=== PATIENT | male | born 1975 | race Caucasian/White ===

== ENCOUNTER → 2023-10-27 15:13 | Outpatient (REF) | payer BC, SELFPAY | LOC: RAD 15:13 | PROVIDERS: ATTENDING PHYSICIAN Orthopaedic Surgery; FAMILY PHYSICIAN Nurse Practitioner Family | DX: S05.50XA Penetrating wound with foreign body of unspecified eyeball, initial encounter (principal) | CPT/HCPCS: 70030 ==

== ENCOUNTER → 2023-11-16 06:31 | Day surgery (SDC) | payer BC, SELFPAY ==
[2023-11-16 07:17] LABS: Glucose - Point of Care 141 mg/dl (70-99)
== END ==
LOC: GI 06:31
PROVIDERS: ATTENDING PHYSICIAN Internal Medicine Gastroenterology
DX: Z12.11 Encounter for screening for malignant neoplasm of colon (principal); R19.5 Other fecal abnormalities; K64.8 Other hemorrhoids; K57.30 Diverticulosis of large intestine without perforation or abscess without bleeding; K63.3 Ulcer of intestine; D12.8 Benign neoplasm of rectum; D12.5 Benign neoplasm of sigmoid colon
CPT/HCPCS: 45385; 45380; 45381; 88305; 82962

== ENCOUNTER 2024-06-09 09:29 | Day surgery (SDC) | payer BC, SELFPAY ==
[2024-06-09] VITALS (18 sets, daily range): BP systolic 104–141; BP diastolic 64–91; BMI 38.4; BMI 38.9
--- NOTE | 2024-06-09 04:01 | ED.GENMED ---
History of Present Illness
<JOSE EDUARDO Valenzuela - Last Filed: 06/09/24 22:03>
General
Chief Complaint: Abdominal Pain
Source: patient
Time Seen by Provider: 06/09/24 04:01
Nursing documentation reviewed up to this point in time: agreed with
History of Present Illness
History of Present Illness:
A pleasant 49-year-old male with a past medical history of hypertension, type 2 diabetes, presents to the emergency department for epigastric abdominal pain x 16 hours. He states that the abdominal pain suddenly started after eating 2 slices of
leftover pizza at noon yesterday. He states that it radiates to the right upper quadrant. It is associated with abdominal bloating, nausea, 3 episodes of nonbloody nonbilious vomiting. He admits to taking Ozempic which was recently increased a
month ago to 2 mg. Patient states he believes he is tolerating the increase in medication well. He has taken Tums, Gas-X, Metamucil without relief.
He does admit to a past history of GERD which resolved with Prilosec trial. He also admits to past history of biliary colic 10+ years ago, and denies any recent episodes of such colic.
Past History
<JOSE EDUARDO Valenzuela - Last Filed: 06/09/24 22:03>
Past History
ED Past Medical History: GERD, HTN and Other (Type 2 diabetes)
Social History
Alcohol: Former
Drug: None
Review of Systems
<JOSE EDUARDO Valenzuela - Last Filed: 06/09/24 22:03>
Review of Systems
Allergies reviewed?: Yes
All Other Systems: ROS reviewed and negative except as documented in HPI and ROS
Phy Exam
<JOSE EDUARDO Valenzuela - Last Filed: 06/09/24 22:03>
General Physical Exam
General Presentation: well appearing and no apparent distress
General age: appears stated age
General Skin: warm
General Habitus: obese
General Mental: alert
General Hydration: appears well hydrated
ENT Exam
ENT Exam: neck supple
Eye Exam
Eye Exam: conjunctiva normal
Cardiovascular Exam
Cardiovascular Exam: regular rate/rhythm, no edema, no gallop, no murmur and normal peripheral pulses
Pulmonary Exam
Pulmonary Exam: lungs clear, no respiratory distress and no rales
Gastrointestinal Exam
Gastrointestinal Exam: normal bowel sounds, soft, distended and tender
Palpation: left upper quadrant: No tenderness, left lower quadrant: No tenderness, right upper quadrant: Moderate tenderness, right lower quadrant: No tenderness and generalized: No tenderness
Neurological Exam
Neurological Exam: alert and oriented x3
Musculoskeletal Exam
Musculoskeletal Exam: full ROM
Skin Exam
Skin Exam: normal color, warm/dry and no rash
Course
<JOSE EDUARDO Valenzuela - Last Filed: 06/09/24 22:03>
Orders/Labs/Results
Orders:
Orders
06/09/24 03:58
Electrocardiogram (*1) Urgent
Reason for Study: Abdominal Pain
EKG- Treatment ONCE
06/09/24 04:28
Complete Blood Count/With Diff Urgent
Comprehensive Metabolic Panel Urgent
Lipase Urgent
Troponin I Urgent
06/09/24 04:37
US Abdomen Complete/Upper Urgent
Comment:
Reason For Exam: pain
06/09/24 04:43
HYDROmorphone [Dilaudid] 0.5 mg IV NOW STA
Ondansetron Injectable [Zofran] 4 mg IV NOW STA
Pantoprazole [Protonix IV] 40 mg IV NOW STA
06/09/24 06:05
Consult Surgery [SURGICAL CONSULT] Routine
Consulting Provider: Jamie Oviedo
Was physician already notified: Yes
06/09/24 06:08
0.9% Sodium Chloride 1000 ml [Nss] 1,000 ml IV BOLUS
06/09/24 06:[address] Non Medication Order As Directed
Physician Order: NPO
Above order entered?: Yes
06/09/24 06:17
Piperacillin/Tazo 3.375 Gram [Zosyn] 3.375 gram in 50 ml IV NOW
06/09/24 06:46
HYDROmorphone [Dilaudid] 0.5 mg .ROUTE .STK-MED ONE
HYDROmorphone [Dilaudid] 0.5 mg IV NOW STA
06/09/24 08:52
HYDROmorphone [Dilaudid] 0.25 mg IV PACU-Q5MPRN PRN
HYDROmorphone [Dilaudid] 0.5 mg IV PACU-Q5MPRN PRN
Meperidine [Demerol] 12.5 mg IV PACU-Q5MPRN PRN
Ondansetron Injectable [Zofran] 4 mg IV PACU-ONCEPRN PRN
Prochlorperazine [Compazine] 5 mg IV PACU-ONCEPRN PRN
Notify MD As Directed
Notify physician if: for SDS patients with known or suspected sleep obstructive sleep apnea, monitor in the
PACU.
Notify MD for any apneic/desaturation episodes
O2 Therapy [RESP] Urgent
Titrate/Wean O2 to maintain O2 sat greater than (%): 92
Special Instructions: -Provide supplemental oxygen to achieve O2 sat of 92% or greater.
-After 15 min, may wean O2 and discontinue if patient is able to maintain O2 sat of 92%
or greater during recovery period.
If patient is a discharge home, without oxygen therapy, notify anestheiologist if
unable to maintain O2 SAT of 92% or greater on room air for MD clearance.
06/09/24 08:53
Bupivacaine 0.5%Pf/Epinephrin [Sensorcain-Mpf Epi 0.5%-0.0005] 30 ml .ROUTE .STK-MED ONE
Iohexol [Omnipaque] 50 ml .ROUTE .STK-MED ONE
06/09/24 09:08
Dexamethasone Sod Phosphate [Decadron] 20 mg .ROUTE .STK-MED ONE
Fentanyl Citrate/Pf [Sublimaze] 100 mcg .ROUTE .STK-MED ONE
Lidocaine HCl/Pf [Xylocaine-Mpf 1% Vial] 50 mg .ROUTE .STK-MED ONE
Midazolam HCl [Versed] 2 mg .ROUTE .STK-MED ONE
Propofol [Diprivan] 20 ml .ROUTE .STK-MED
Rocuronium Davis [Rocuronium] 50 mg .ROUTE .STK-MED ONE
06/09/24 09:33
HYDROmorphone [Dilaudid] 1 mg .ROUTE .STK-MED ONE
06/09/24 09:34
Ketamine 5 ml .ROUTE .STK-MED
06/09/24 09:44
Sugammadex Sodium [Bridion] 200 mg .ROUTE .STK-MED ONE
06/09/24 09:52
Rocuronium Davis [Rocuronium] 50 mg .ROUTE .STK-MED ONE
06/09/24 Lunch
2000 calorie (17 carb) Diabetic
At Your Request: Full Participation
Does patient need a safe tray?: No
06/09/24 10:08
OR Pathology Routine
Pre-Operative Diagnosis: acute cholecystitis
Post-Operative Diagnosis: acute cholecystitis
Operative Procedure: laparascopic cholecystectomy
Surgeon: Jamie Oviedo
Circulating Nurse: Estrella Andrade
Specimen Type: Gallbladder
06/09/24 10:12
Tranexamic Acid 1000 mg/100 ml [Tranexamic Acid] 1,000 mg in 100 ml .ROUTE .STK-MED
06/09/24 10:23
Acetaminophen 1000MG/100Ml [Ofirmev] 1,000 mg in 100 ml .ROUTE .STK-MED
06/09/24 10:58
Admit Patient As Directed
Co-Sign Provider:
Level of Care: Post Proc/Surg Recovery
Assign to:: Medical/Surgical
Physician / Group: Preet/general surgery
Diagnosis: Acute cholecystitis
Reason for Overnight Stay: Standard of Care
Code Status As Directed
Resuscitation Status: Full Code
Acetaminophen [Tylenol] 650 mg PO Q4HPRN PRN
HYDROmorphone [Dilaudid] 1 mg IV Q4HPRN PRN
Ondansetron Injectable [Zofran] 4 mg IV Q6HPRN PRN
Oxycodone [Roxicodone] 5 mg PO Q4HPRN PRN
Activity As Directed
Activity Level: Out of Bed-Early Mobility
Anti-embolism (EVA) Hose As Directed
Type: Thigh high
Intake/ Output As Directed
Frequency: Per unit guidelines
Vital Signs As Directed
Frequency: Per unit guidelines
06/09/24 10:59
Pneumatic Compression Sleeves As Directed
Type: Knee high
PRN Pain Medication Management As Directed
May give lesser potent ordered pain med per pt: Yes
preference::
Protocol:: Medication orders for pain may be administered in a
manner that supports deferring to patient preference
when the pt is:
- Requesting an ordered lesser potent pain medication.
Least to most potent pain medications are defined
as: acetaminophen < NSAID < tramadol < opioids
(morphine, oxycodone, hydromorphone).
- Requesting a lesser dose of the same medication IF
ORDERED.
- Requesting a less intrusive route of administration
if both routes are prescribed by the provider (PO <
IV).
Rx Incentive Spirometry [RESP] Routine
Frequency: q1h while awake
# of times per hour: 10
DX Deep Vein Thrombosis Video Routine
06/09/24 11:26
Dextrose 50%-Water [Dextrose 50% Syringe] 12.5 grams IV PROCEDURE-PRN PRN
Insulin Aspart [NOVOLOG vial] See Protocol SC PROCEDURE- Q2H PRN PRN
Bedside Glucose Monitoring As Directed
Frequency: Q2H
Additional Instructions:: UNTIL PATIENT LEAVES PROCEDURE AREA
06/09/24 11:36
Dextrose 50%-Water [Dextrose 50% Syringe] 12.5 grams IV [id number] PRN
Glucagon [GlucaGen] 1 mg IM PRN PRN
Bedside Glucose Monitoring As Directed
Frequency: AC&HS
Additional Instructions:: Change to q6h if pt on TPN, tube feeding or not eating
06/09/24 16:00
Piperacillin/Tazo 3.375 Gram [Zosyn] 3.375 gram in 50 ml IV Q6
06/09/24 16:30
Insulin Aspart Corrective Low [Novolog Flexpen-Low Resistance] See Protocol SC AC
06/10/24 06:00
Complete Blood Count/No Diff IN AM
Comprehensive Metabolic Panel IN AM
Abnormal Lab Results
06/09/24 06/09/24 06/09/24
04:28 11:25 16:48
WBC 15.7 H 10^3/uL
(4.8-10.8)
Abs Immat Gran (auto) 0.1 H 10^3/uL
(0-0.05)
Absolute Neuts (auto) 13.2 H 10^3/uL
(1.4-6.5)
Absolute Monos (auto) 0.9 H 10^3/uL
(0.1-0.6)
Neutrophils % 83.7 H %
(42.2-75.2)
Lymphocytes % 9.3 L %
(20.5-51.1)
BUN 29 H mg/dl
(9-20)
Glucose 169 H mg/dl
(70-99)
POC Glucose 176 H mg/dl 170 H mg/dl
(70-99) (70-99)
06/09/24
21:39
WBC
Abs Immat Gran (auto)
Absolute Neuts (auto)
Absolute Monos (auto)
Neutrophils %
Lymphocytes %
BUN
Glucose
POC Glucose 170 H mg/dl
(70-99)
06/09/24 04:28
06/09/24 04:28
Vital Signs
Initial and Last Documented VS:
Initial Vital Signs
BP
133/80
06/09/24 04:04
Last Documented Vital Signs
Temp Pulse Resp BP Pulse Ox
98.3 F 101 22 104/66 94
06/09/24 19:51 06/09/24 19:51 06/09/24 19:51 06/09/24 19:51 06/09/24 19:51
<Nomi Carrillo, DO - Last Filed: 06/09/24 04:44>
Orders/Labs/Results
Orders:
Orders
06/09/24 03:58
Electrocardiogram (*1) Urgent
Reason for Study: Abdominal Pain
EKG- Treatment ONCE
06/09/24 04:28
Complete Blood Count/With Diff Urgent
Comprehensive Metabolic Panel Urgent
Lipase Urgent
Troponin I Urgent
06/09/24 04:37
US Abdomen Complete/Upper Urgent
Comment:
Reason For Exam: pain
06/09/24 04:43
HYDROmorphone [Dilaudid] 0.5 mg IV NOW STA
Ondansetron Injectable [Zofran] 4 mg IV NOW STA
Pantoprazole [Protonix IV] 40 mg IV NOW STA
06/09/24 06:05
Consult Surgery [SURGICAL CONSULT] Routine
Consulting Provider: Jamie Oviedo
Was physician already notified: Yes
06/09/24 06:08
0.9% Sodium Chloride 1000 ml [Nss] 1,000 ml IV BOLUS
06/09/24 06:[address] Non Medication Order As Directed
Physician Order: NPO
Above order entered?: Yes
06/09/24 06:17
Piperacillin/Tazo 3.375 Gram [Zosyn] 3.375 gram in 50 ml IV NOW
06/09/24 06:46
HYDROmorphone [Dilaudid] 0.5 mg .ROUTE .STK-MED ONE
HYDROmorphone [Dilaudid] 0.5 mg IV NOW STA
06/09/24 08:52
HYDROmorphone [Dilaudid] 0.25 mg IV PACU-Q5MPRN PRN
HYDROmorphone [Dilaudid] 0.5 mg IV PACU-Q5MPRN PRN
Meperidine [Demerol] 12.5 mg IV PACU-Q5MPRN PRN
Ondansetron Injectable [Zofran] 4 mg IV PACU-ONCEPRN PRN
Prochlorperazine [Compazine] 5 mg IV PACU-ONCEPRN PRN
Notify MD As Directed
Notify physician if: for SDS patients with known or suspected sleep obstructive sleep apnea, monitor in the
PACU.
Notify MD for any apneic/desaturation episodes
O2 Therapy [RESP] Urgent
Titrate/Wean O2 to maintain O2 sat greater than (%): 92
Special Instructions: -Provide supplemental oxygen to achieve O2 sat of 92% or greater.
-After 15 min, may wean O2 and discontinue if patient is able to maintain O2 sat of 92%
or greater during recovery period.
If patient is a discharge home, without oxygen therapy, notify anestheiologist if
unable to maintain O2 SAT of 92% or greater on room air for MD clearance.
06/09/24 08:53
Bupivacaine 0.5%Pf/Epinephrin [Sensorcain-Mpf Epi 0.5%-0.0005] 30 ml .ROUTE .STK-MED ONE
Iohexol [Omnipaque] 50 ml .ROUTE .STK-MED ONE
06/09/24 09:08
Dexamethasone Sod Phosphate [Decadron] 20 mg .ROUTE .STK-MED ONE
Fentanyl Citrate/Pf [Sublimaze] 100 mcg .ROUTE .STK-MED ONE
Lidocaine HCl/Pf [Xylocaine-Mpf 1% Vial] 50 mg .ROUTE .STK-MED ONE
Midazolam HCl [Versed] 2 mg .ROUTE .STK-MED ONE
Propofol [Diprivan] 20 ml .ROUTE .STK-MED
Rocuronium Davis [Rocuronium] 50 mg .ROUTE .STK-MED ONE
06/09/24 09:33
HYDROmorphone [Dilaudid] 1 mg .ROUTE .STK-MED ONE
06/09/24 09:34
Ketamine 5 ml .ROUTE .STK-MED
06/09/24 09:44
Sugammadex Sodium [Bridion] 200 mg .ROUTE .STK-MED ONE
06/09/24 09:52
Rocuronium Davis [Rocuronium] 50 mg .ROUTE .STK-MED ONE
06/09/24 Lunch
2000 calorie (17 carb) Diabetic
At Your Request: Full Participation
Does patient need a safe tray?: No
06/09/24 10:08
OR Pathology Routine
Pre-Operative Diagnosis: acute cholecystitis
Post-Operative Diagnosis: acute cholecystitis
Operative Procedure: laparascopic cholecystectomy
Surgeon: Jamie Oviedo
Circulating Nurse: Estrella Andrade
Specimen Type: Gallbladder
06/09/24 10:12
Tranexamic Acid 1000 mg/100 ml [Tranexamic Acid] 1,000 mg in 100 ml .ROUTE .STK-MED
06/09/24 10:23
Acetaminophen 1000MG/100Ml [Ofirmev] 1,000 mg in 100 ml .ROUTE .STK-MED
06/09/24 10:58
Admit Patient As Directed
Co-Sign Provider:
Level of Care: Post Proc/Surg Recovery
Assign to:: Medical/Surgical
Physician / Group: Preet/general surgery
Diagnosis: Acute cholecystitis
Reason for Overnight Stay: Standard of Care
Code Status As Directed
Resuscitation Status: Full Code
Acetaminophen [Tylenol] 650 mg PO Q4HPRN PRN
HYDROmorphone [Dilaudid] 1 mg IV Q4HPRN PRN
Ondansetron Injectable [Zofran] 4 mg IV Q6HPRN PRN
Oxycodone [Roxicodone] 5 mg PO Q4HPRN PRN
Activity As Directed
Activity Level: Out of Bed-Early Mobility
Anti-embolism (EVA) Hose As Directed
Type: Thigh high
Intake/ Output As Directed
Frequency: Per unit guidelines
Vital Signs As Directed
Frequency: Per unit guidelines
06/09/24 10:59
Pneumatic Compression Sleeves As Directed
Type: Knee high
PRN Pain Medication Management As Directed
May give lesser potent ordered pain med per pt: Yes
preference::
Protocol:: Medication orders for pain may be administered in a
manner that supports deferring to patient preference
when the pt is:
- Requesting an ordered lesser potent pain medication.
Least to most potent pain medications are defined
as: acetaminophen < NSAID < tramadol < opioids
(morphine, oxycodone, hydromorphone).
- Requesting a lesser dose of the same medication IF
ORDERED.
- Requesting a less intrusive route of administration
if both routes are prescribed by the provider (PO <
IV).
Rx Incentive Spirometry [RESP] Routine
Frequency: q1h while awake
# of times per hour: 10
DX Deep Vein Thrombosis Video Routine
06/09/24 11:26
Dextrose 50%-Water [Dextrose 50% Syringe] 12.5 grams IV PROCEDURE-PRN PRN
Insulin Aspart [NOVOLOG vial] See Protocol SC PROCEDURE- Q2H PRN PRN
Bedside Glucose Monitoring As Directed
Frequency: Q2H
Additional Instructions:: UNTIL PATIENT LEAVES PROCEDURE AREA
06/09/24 11:36
Dextrose 50%-Water [Dextrose 50% Syringe] 12.5 grams IV [id number] PRN
Glucagon [GlucaGen] 1 mg IM PRN PRN
Bedside Glucose Monitoring As Directed
Frequency: AC&HS
Additional Instructions:: Change to q6h if pt on TPN, tube feeding or not eating
06/09/24 16:00
Piperacillin/Tazo 3.375 Gram [Zosyn] 3.375 gram in 50 ml IV Q6
06/09/24 16:30
Insulin Aspart Corrective Low [Novolog Flexpen-Low Resistance] See Protocol SC AC
06/10/24 06:00
Complete Blood Count/No Diff IN AM
Comprehensive Metabolic Panel IN AM
Abnormal Lab Results
06/09/24 06/09/24 06/09/24
04:28 11:25 16:48
WBC 15.7 H 10^3/uL
(4.8-10.8)
Abs Immat Gran (auto) 0.1 H 10^3/uL
(0-0.05)
Absolute Neuts (auto) 13.2 H 10^3/uL
(1.4-6.5)
Absolute Monos (auto) 0.9 H 10^3/uL
(0.1-0.6)
Neutrophils % 83.7 H %
(42.2-75.2)
Lymphocytes % 9.3 L %
(20.5-51.1)
BUN 29 H mg/dl
(04-19)
Glucose 169 H mg/dl
()
POC Glucose 176 H mg/dl 170 H mg/dl
() (99)
06/09/24
21:39
WBC
Abs Immat Gran (auto)
Absolute Neuts (auto)
Absolute Monos (auto)
Neutrophils %
Lymphocytes %
BUN
Glucose
POC Glucose 170 H mg/dl
()
06/09/24 04:28
06/09/24 04:28
Vital Signs
Initial and Last Documented VS:
Initial Vital Signs
BP
133/80
06/09/24 04:04
Last Documented Vital Signs
Temp Pulse Resp BP Pulse Ox
98.3 F 101 22 104/66 94
06/09/24 19:51 06/09/24 19:51 06/09/24 19:51 06/09/24 19:51 06/09/24 19:51
<Sy Patel MD - Last Filed: 06/09/24 08:52>
Orders/Labs/Results
Orders:
Orders
06/09/24 03:58
Electrocardiogram (*1) Urgent
Reason for Study: Abdominal Pain
EKG- Treatment ONCE
06/09/24 04:28
Complete Blood Count/With Diff Urgent
Comprehensive Metabolic Panel Urgent
Lipase Urgent
Troponin I Urgent
06/09/24 04:37
US Abdomen Complete/Upper Urgent
Comment:
Reason For Exam: pain
06/09/24 04:43
HYDROmorphone [Dilaudid] 0.5 mg IV NOW STA
Ondansetron Injectable [Zofran] 4 mg IV NOW STA
Pantoprazole [Protonix IV] 40 mg IV NOW STA
06/09/24 06:05
Consult Surgery [SURGICAL CONSULT] Routine
Consulting Provider: Jamie Oviedo
Was physician already notified: Yes
06/09/24 06:08
0.9% Sodium Chloride 1000 ml [Nss] 1,000 ml IV BOLUS
06/09/24 06:[address] Non Medication Order As Directed
Physician Order: NPO
Above order entered?: Yes
06/09/24 06:17
Piperacillin/Tazo 3.375 Gram [Zosyn] 3.375 gram in 50 ml IV NOW
06/09/24 06:46
HYDROmorphone [Dilaudid] 0.5 mg .ROUTE .STK-MED ONE
HYDROmorphone [Dilaudid] 0.5 mg IV NOW STA
06/09/24 08:52
HYDROmorphone [Dilaudid] 0.25 mg IV PACU-Q5MPRN PRN
HYDROmorphone [Dilaudid] 0.5 mg IV PACU-Q5MPRN PRN
Meperidine [Demerol] 12.5 mg IV PACU-Q5MPRN PRN
Ondansetron Injectable [Zofran] 4 mg IV PACU-ONCEPRN PRN
Prochlorperazine [Compazine] 5 mg IV PACU-ONCEPRN PRN
Notify MD As Directed
Notify physician if: for SDS patients with known or suspected sleep obstructive sleep apnea, monitor in the
PACU.
Notify MD for any apneic/desaturation episodes
O2 Therapy [RESP] Urgent
Titrate/Wean O2 to maintain O2 sat greater than (%): 92
Special Instructions: -Provide supplemental oxygen to achieve O2 sat of 92% or greater.
-After 15 min, may wean O2 and discontinue if patient is able to maintain O2 sat of 92%
or greater during recovery period.
If patient is a discharge home, without oxygen therapy, notify anestheiologist if
unable to maintain O2 SAT of 92% or greater on room air for MD clearance.
06/09/24 08:53
Bupivacaine 0.5%Pf/Epinephrin [Sensorcain-Mpf Epi 0.5%-0.0005] 30 ml .ROUTE .STK-MED ONE
Iohexol [Omnipaque] 50 ml .ROUTE .STK-MED ONE
06/09/24 09:08
Dexamethasone Sod Phosphate [Decadron] 20 mg .ROUTE .STK-MED ONE
Fentanyl Citrate/Pf [Sublimaze] 100 mcg .ROUTE .STK-MED ONE
Lidocaine HCl/Pf [Xylocaine-Mpf 1% Vial] 50 mg .ROUTE .STK-MED ONE
Midazolam HCl [Versed] 2 mg .ROUTE .STK-MED ONE
Propofol [Diprivan] 20 ml .ROUTE .STK-MED
Rocuronium Davis [Rocuronium] 50 mg .ROUTE .STK-MED ONE
06/09/24 09:33
HYDROmorphone [Dilaudid] 1 mg .ROUTE .STK-MED ONE
06/09/24 09:34
Ketamine 5 ml .ROUTE .STK-MED
06/09/24 09:44
Sugammadex Sodium [Bridion] 200 mg .ROUTE .STK-MED ONE
06/09/24 09:52
Rocuronium Davis [Rocuronium] 50 mg .ROUTE .STK-MED ONE
06/09/24 Lunch
2000 calorie (17 carb) Diabetic
At Your Request: Full Participation
Does patient need a safe tray?: No
06/09/24 10:08
OR Pathology Routine
Pre-Operative Diagnosis: acute cholecystitis
Post-Operative Diagnosis: acute cholecystitis
Operative Procedure: laparascopic cholecystectomy
Surgeon: Jamie Oviedo
Circulating Nurse: Estrella Andrade
Specimen Type: Gallbladder
06/09/24 10:12
Tranexamic Acid 1000 mg/100 ml [Tranexamic Acid] 1,000 mg in 100 ml .ROUTE .STK-MED
06/09/24 10:23
Acetaminophen 1000MG/100Ml [Ofirmev] 1,000 mg in 100 ml .ROUTE .STK-MED
06/09/24 10:58
Admit Patient As Directed
Co-Sign Provider:
Level of Care: Post Proc/Surg Recovery
Assign to:: Medical/Surgical
Physician / Group: Preet/general surgery
Diagnosis: Acute cholecystitis
Reason for Overnight Stay: Standard of Care
Code Status As Directed
Resuscitation Status: Full Code
Acetaminophen [Tylenol] 650 mg PO Q4HPRN PRN
HYDROmorphone [Dilaudid] 1 mg IV Q4HPRN PRN
Ondansetron Injectable [Zofran] 4 mg IV Q6HPRN PRN
Oxycodone [Roxicodone] 5 mg PO Q4HPRN PRN
Activity As Directed
Activity Level: Out of Bed-Early Mobility
Anti-embolism (EVA) Hose As Directed
Type: Thigh high
Intake/ Output As Directed
Frequency: Per unit guidelines
Vital Signs As Directed
Frequency: Per unit guidelines
06/09/24 10:59
Pneumatic Compression Sleeves As Directed
Type: Knee high
PRN Pain Medication Management As Directed
May give lesser potent ordered pain med per pt: Yes
preference::
Protocol:: Medication orders for pain may be administered in a
manner that supports deferring to patient preference
when the pt is:
- Requesting an ordered lesser potent pain medication.
Least to most potent pain medications are defined
as: acetaminophen < NSAID < tramadol < opioids
(morphine, oxycodone, hydromorphone).
- Requesting a lesser dose of the same medication IF
ORDERED.
- Requesting a less intrusive route of administration
if both routes are prescribed by the provider (PO <
IV).
Rx Incentive Spirometry [RESP] Routine
Frequency: q1h while awake
# of times per hour: 10
DX Deep Vein Thrombosis Video Routine
06/09/24 11:26
Dextrose 50%-Water [Dextrose 50% Syringe] 12.5 grams IV PROCEDURE-PRN PRN
Insulin Aspart [NOVOLOG vial] See Protocol SC PROCEDURE- Q2H PRN PRN
Bedside Glucose Monitoring As Directed
Frequency: Q2H
Additional Instructions:: UNTIL PATIENT LEAVES PROCEDURE AREA
06/09/24 11:36
Dextrose 50%-Water [Dextrose 50% Syringe] 12.5 grams IV [id number] PRN
Glucagon [GlucaGen] 1 mg IM PRN PRN
Bedside Glucose Monitoring As Directed
Frequency: AC&HS
Additional Instructions:: Change to q6h if pt on TPN, tube feeding or not eating
06/09/24 16:00
Piperacillin/Tazo 3.375 Gram [Zosyn] 3.375 gram in 50 ml IV Q6
06/09/24 16:30
Insulin Aspart Corrective Low [Novolog Flexpen-Low Resistance] See Protocol SC AC
06/10/24 06:00
Complete Blood Count/No Diff IN AM
Comprehensive Metabolic Panel IN AM
Abnormal Lab Results
06/09/24 06/09/24 06/09/24
04:28 11:25 16:48
WBC 15.7 H 10^3/uL
(4.8-10.8)
Abs Immat Gran (auto) 0.1 H 10^3/uL
(0-0.05)
Absolute Neuts (auto) 13.2 H 10^3/uL
(1.4-6.5)
Absolute Monos (auto) 0.9 H 10^3/uL
(0.1-0.6)
Neutrophils % 83.7 H %
(42.2-75.2)
Lymphocytes % 9.3 L %
(20.5-51.1)
BUN 29 H mg/dl
(04-19)
Glucose 169 H mg/dl
(7099)
POC Glucose 176 H mg/dl 170 H mg/dl
(70-99) (70-99)
06/09/24
21:39
WBC
Abs Immat Gran (auto)
Absolute Neuts (auto)
Absolute Monos (auto)
Neutrophils %
Lymphocytes %
BUN
Glucose
POC Glucose 170 H mg/dl
(99)
06/09/24 04:28
06/09/24 04:28
Vital Signs
Initial and Last Documented VS:
Initial Vital Signs
BP
133/80
06/09/24 04:04
Last Documented Vital Signs
Temp Pulse Resp BP Pulse Ox
98.3 F 101 22 104/66 94
06/09/24 19:51 06/09/24 19:51 06/09/24 19:51 06/09/24 19:51 06/09/24 19:51
<JOSE EDUARDO Valenzuela - Last Filed: 06/09/24 22:03>
MDM/Problems Addressed
Differential Diagnosis Includes:
Cholelithiasis, cholecystitis, acute cholangitis, pancreatitis
<Sy Patel MD - Last Filed: 06/09/24 08:52>
MDM/Problems Addressed
MDM/Problems Addressed:
Pt seen in ED by (surgery) - will proceed to OR, as pt continues to remain symptomatic, requiring multiple doses of pain medication
<JOSE EDUARDO Valenzuela - Last Filed: 06/09/24 22:03>
*Critical Care Note
Total Time (30-74mins, 75-104mins- exclusive of procedures): Not Applicable
<Nomi Carrillo DO - Last Filed: 06/09/24 04:44>
Update Note
Update Note:
4:40 AM seen with student examined independently 49-year-old male diabetic on Ozempic recent increase in dose epigastric right upper quadrant pain after eating pizza similar less severe in the past as of reflux in the past no prior abdominal
surgeries no chest pain or shortness of breath,
White count is up LFTs are pending, lipase is pending EKG is noted will check ultrasound,
ED Attending Note
<JOSE EDUARDO Valenzuela - Last Filed: 06/09/24 22:03>
-
Portions of this chart may have been created with voice recognition software.� Occasional wrong word or��sound alike� substitutions may have occurred due to the inherent limitations of voice recognition software.
<Nomi Carrillo DO - Last Filed: 06/09/24 04:44>
ED Attending Note
Patient seen and examined by attending physician: Yes
I performed the substantive portion of visit, reviewed & personally made and approve the management plan that is documented in note by myself or KATIE.: Yes
ED Attending Note:
Seen with student examined independently agree with assessment plan
Discharge Plan
Departure
Patient Disposition: OR
Date of Disposition: 06/09/24
Time of Disposition: 06:18
Presentation/result/management discussed w/ accepting MD/:
Discharge Problem:
Biliary colic
Interventions
Interventions:
*Risk Screen - Suicide Last Done: 06/09/24 03:53
*General Assessment Last Done: 06/09/24 04:18
*Neglect/Abuse Screening Last Done: 06/09/24 03:53
ED- Fall Risk Assessment Last Done: 06/09/24 04:18
*ED COVID-19 Vaccine History Last Done: 06/09/24 04:18
*Nursing Disposition Last Done: 06/09/24 08:55
[facility] Assessment Last Done: 06/09/24 04:17
Discharge Date and Time
Discharge Date/Time: 06/09/24 08:55
[2024-06-09 04:34] LABS: % Basophils 0.5 % (0-2); % Eosinophils 0.4 % (0-6); % Immature Granulocytes 0.4 % (0-0.5); % Lymphocytes 9.3 % (20.5-51.1); % Monocytes 5.7 % (1.7-9.3); % Neutrophils 83.7 % (42.2-75.2); Absolute Basophils 0.1 10^3/uL (0-0.2); Absolute Eosinophils 0.1 10^3/uL (0-0.7); Absolute Immature Granulocytes 0.1 10^3/uL (0-0.05); Absolute Lymphocytes 1.5 10^3/uL (1.2-3.4); Absolute Monocytes 0.9 10^3/uL (0.1-0.6); Absolute Neutrophils 13.2 10^3/uL (1.4-6.5); Hematocrit 40.9 % (39.0-52.0); Hemoglobin 14.9 g/dL (13.0-18.0); Mean Corp Hgb Conc. 36.4 g/dL (33.0-37.0); Mean Corpuscular Hgb 30.1 pg (27.0-31.0); Mean Corpuscular Volume 82.6 fL (80.0-94.0); Mean Platelet Volume 9.1 fL (7.4-10.4); Nucleated Red Blood Cells % 0 % (-); Platelet Count 274 10^3/uL (130-400); Red Blood Cell Count 4.95 10^6/uL (4.70-6.10); White Blood Cell Count 15.7 10^3/uL (4.8-10.8)
[2024-06-09] MEDS: PROTONIX IV 40 MG IV (04:46)
[2024-06-09] MEDS: ZOFRAN 4 MG IV (04:46)
[2024-06-09] MEDS: DILAUDID 0.5 MG IV ×2 (04:46→06:47)
[2024-06-09 04:53] LABS: ALT (SGPT) 44 U/L (0-50); AST (SGOT) 23 U/L (17-59); Albumin 4.7 g/dl (3.5-5.0); Alkaline Phosphatase 91 U/L (38-126); Blood Urea Nitrogen 29 mg/dl (9-20); Calcium 10.2 mg/dl (8.4-10.2); Carbon Dioxide 27 mmol/L (22-30); Chloride 99 mmol/L (98-107); Estimated Creatinine Clearance > 125 ml/min; Glucose 169 mg/dl (70-99); Lipase 101 U/L (23-300); Potassium 3.9 mmol/L (3.5-5.1); Sodium 137 mmol/L (135-145); Total Bilirubin 0.6 mg/dl (0.2-1.3); Total Protein 7.4 g/dl (6.3-8.2); eGFR > 60.00
[2024-06-09 04:59] LABS: Troponin I < 0.012 ng/ml
[2024-06-09] MEDS: NSS 1000 IV (06:14)
[2024-06-09] MEDS: ZOSYN 50 IV ×3 (06:22→23:02)
--- NOTE | 2024-06-09 08:24 | HPS.HSE ---
Family Physician
-
Family Physician: TERA Dela Cruz
Chief Complaint
-
Right upper quadrant pain
History of Present Illness
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 He has had similar attacks in the past but this was much more prolonged which
prompted him to come into the ED. The patient denies Fever, Chest Pain, Shortness Of Breath, Nausea, Vomiting, changes in urinary and bowel habits, unintentional weight loss, jaundice, icterus, acolic stools.
His history is significant for Hypertension, diabetes which is fairly well-controlled, he is on a GLP-1 agonist.
Medical History
Past Medical History
Past Medical History: Reports HTN and NIDDM
Past Surgical History: Reports None
Social History
Unable to obtain full social history at this time due to: Dementia
Tobacco: Non-smoker
Alcohol: Former
Drug: None
Personal: Single
Living: With Family
Family History
Family History: Not pertinent
Allergies / Home Medications
Allergies reflects when Allergies were last updated in [employer].
Home Medications with original date entered in [employer]
Allergy/Medication List:
None
Review of Systems
-
A 12 point ROS was completed and negative except as noted: Yes
Physical Exam
Vital Signs
Vital Signs
Temp Pulse Resp BP Pulse Ox
97.9 F 105 16 141/91 94
06/09/24 04:24 06/09/24 06:00 06/09/24 06:00 06/09/24 06:00 06/09/24 05:15
Physical Exam
General: Well Developed and Obese
GI: Non Distended and Tender (Tender to palpation in the right upper quadrant)
Laboratory Results
-
06/09/24 04:28
06/09/24 04:28
Laboratory Results
Total Bilirubin 0.6 mg/dl (0.2-1.3) 06/09/24 04:28
AST 23 U/L (17-59) 06/09/24 04:28
ALT 44 U/L (0-50) 06/09/24 04:28
Alkaline Phosphatase 91 U/L (38-126) 06/09/24 04:28
Troponin I < 0.012 ng/ml 06/09/24 04:28
Lipase 101 U/L (23-300) 06/09/24 04:28
Data Reviewed
-
Ultrasound: Image Personally Visualized and interpreted, Report Reviewed by me, Discussed with Physician and Discussed with Patient
Lab Data: Labs Reviewed by me, Discussed with Physician and Discussed with Patient
Impression/Plan
-
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
Ozempic. Ultrasound imaging, blood work and exam all consistent with acute cholecystitis.
PLAN:
Will plan for a laparoscopic cholecystectomy with cholangiogram in the OR today.
N.p.o., IV fluids, IV antibiotics.
Risks/Benefits/Alternatives, expected postoperative course and possible complications (bleeding, infection, injury to surrounding structures, acute/chronic pain) discussed at length. Patient wishes to proceed with surgery. All questions answered.
Consent obtained.
I spent 60 minutes in total for the care of this patient today including direct patient care and counseling, reviewing labs, imaging, coordination of care, as well as documentation.
--- NOTE | 2024-06-09 08:33 | W.SUR.PREOP ---
Pre-Operative Surgical Note
-
I have examined this patient prior to the performance of the scheduled procedure.
The patient's condition is unchanged from the time of the current History and
Physical and the patient is able to undergo the scheduled procedure.
--- NOTE | 2024-06-09 10:50 | W.IMMPOSTOP ---
Surgical Immed Post Op Note
-
Primary Surgeon: Jamie Oviedo MD
Assisting Surgeon: None
Pre-op Diagnosis: Acute cholecystitis
Post-op Diagnosis: Same
Procedure Performed: Laparoscopic cholecystectomy
Anesthesia Type: General
Specimen / Cultures: Gallbladder and contents
Estimated Blood Loss: 11 cc
Complications: None
Operative Findings: Inflamed and distended gallbladder, hydrops suctioned out using an aspiration needle. A critical view of safety obtained prior to ligation of the duct with a clip followed by a 0 PDS Endoloop. True cystic artery not identified,
but a small branch of it was clipped. A small rent in the gallbladder was made with spillage of bile but no stones. A large cholesterol gallstone could be appreciated through this rent.
POST OP PLAN:
Imaging: None
Labs: Routine AM
Diet: Advance to Regular as tolerated
Analgesia: Tylenol 650mg q6 Lorena, Ciera 5mg q6 PRN, Dilaudid 0.5mg q2h PRN
Neuro/vascular checks: q4h
AC/AP: Hold Therapeutic AC, Ok for DVT PPx
Activity: Ad Rere
Wound/Incisions/Drains: Routine
Abx: Would do a 4-day course of antibiotics
Dispo: RNF, anticipate discharge home tomorrow
--- NOTE | 2024-06-09 10:52 | OR.RPT ---
Operative Report
Operative Report
Patient Name: Dean Haro
: 1975
Date of Operation: 06/09/2024
Preoperative Diagnosis: Acute cholecystitis
Postoperative Diagnosis: Same
Procedure(s):
Laparoscopic Cholecystectomy
Surgeon(s):
Dr. Oviedo
Hydrologist(s):
DANNA Lepe
Anesthesia: General
Estimated Blood Loss: 11 cc
Urine Output: None
Drains/Lines/Implants: None
Specimens:
1. Gallbladder and contents
HPI/Surgical Indications:
This is a 49-year-old male who presents with a 1 day history of right upper quadrant abdominal pain, in the setting of similar episodes over the past several months since the patient has started Ozempic. Exam, labs and imaging are consistent with
acute cholecystitis. Risks/Benefits/Alternatives were discussed at length, and the patient agreed to proceed with surgery.
Operative Findings: Inflamed and distended gallbladder, hydrops suctioned out using an aspiration needle. A critical view of safety obtained prior to ligation of the duct with a clip followed by a 0 PDS Endoloop. True cystic artery not identified,
but a small branch of it was clipped. A small rent in the gallbladder was made with spillage of bile but no stones. A large cholesterol gallstone could be appreciated through this rent.
Procedure Description:
The patient was brought to the Operating Room and placed in the supine position with one arm tucked. Following uneventful induction of general endotracheal anesthesia, an orogastric tube was placed. The abdomen was prepped and draped in the usual
sterile fashion. A timeout was performed confirming the procedure, consent, and that IV antibiotics were infused and sequential compression devices were confirmed to be on. The abdomen was entered using a left subcostal Veress technique which
required a single pass followed by a 5 mm right upper quadrant Optiview trocar. Pneumoperitoneum to 15 mmHg pressure was obtained without difficulty and we confirmed that no injury had occurred during our entry. The patient was positioned in reverse
Trendelenberg and rotated with the right side up slightly. Two 5mm trocars were then placed along the right subcostal margin, followed by a 12 mm port in the epigastrium. The gallbladder was emptied using a decompressing needle through the fundus
of the gallbladder with evacuation of hydrops before A locking grasping forceps was placed on the fundus of the gallbladder where it was then retracted cephalad and to the right. Using appropriate grasping instruments, the peritoneum overlying the
triangle of Calot was incised and extended superiorly on both the anterior and posterior gallbladder colon. The infundibulum was dissected off the cystic plate. The cystic triangle was dissected until a critical view of safety was achieved. A true
cystic artery was not identified but a small branch was clipped and ligated in the cystic triangle. The cystic duct was also clipped proximally and then cut. As the duct was exceedingly small we elected not to do a cholangiogram and the duct was
ligated distally with a clip followed by a 0 PDS Endoloop. The gallbladder was freed from the liver using electrocautery. There were a few small rents in the gallbladder with some spillage of bile, but no spillage of stones. A large cholesterol
gallstone could be appreciated through 1 of these rents. The gallbladder bed was inspected and excellent hemostasis was obtained. The gallbladder was extracted through the 12 mm trocar site using an endocatch bag. The abdomen was again irrigated
and excellent hemostasis was assured. All remaining trocars were then removed and the pneumoperitoneum was evacuated. The 12 mm trocar site which had to be enlarged to remove the specimen, was closed using 2 [id number] 0 PDS sutures. All
trocar sites were closed at the skin level using 4-0 Monocryl followed by Dermabond. Overall, the patient tolerated the procedure well and was taken to the Recovery Room postoperatively in stable condition.
I was the attending physician and performed the procedure with assistance from the . I was present for all portions of the case.
Jamie Oviedo MD
[2024-06-09 11:26] LABS: Glucose - Point of Care 176 mg/dl (70-99)
--- NOTE | 2024-06-09 16:06 | PTCARENOTE ---
pt to floor at 1200, Aox3. 4lap sites, here for Zosyn. bed low call hogan in reach
[2024-06-09] MEDS: TYLENOL 650 MG PO (16:21)
[2024-06-09 16:48] LABS: Glucose - Point of Care 170 mg/dl (70-99)
[2024-06-09] MEDS: NOVOLOG FLEXPEN-LOW RESISTANCE 1 UNITS SC (18:18)
[2024-06-09 21:41] LABS: Glucose - Point of Care 170 mg/dl (70-99)
[2024-06-09] MEDS: ROXICODONE 5 MG PO (22:38)
[2024-06-10 03:14] VITALS: BP 113/72
[2024-06-10] MEDS: ZOSYN 50 IV (05:23)
[2024-06-10 05:48] LABS: Hemoglobin 13.3 g/dL (13.0-18.0); Mean Corpuscular Hgb 30.1 pg (27.0-31.0); Mean Platelet Volume 9.5 fL (7.4-10.4); Platelet Count 270 10^3/uL (130-400); Red Blood Cell Count 4.42 10^6/uL (4.70-6.10); Red Cell Dist. Width 13.3 % (11.5-14.5); White Blood Cell Count 14.4 10^3/uL (4.8-10.8)
[2024-06-10 06:05] LABS: ALT (SGPT) 135 U/L (0-50); AST (SGOT) 71 U/L (17-59); Albumin 3.9 g/dl (3.5-5.0); Alkaline Phosphatase 88 U/L (38-126); Blood Urea Nitrogen 21 mg/dl (9-20); Calcium 8.9 mg/dl (8.4-10.2); Carbon Dioxide 26 mmol/L (22-30); Chloride 100 mmol/L (98-107); Estimated Creatinine Clearance > 125 ml/min; Glucose 123 mg/dl (70-99); Potassium 3.7 mmol/L (3.5-5.1); Sodium 139 mmol/L (135-145); Total Bilirubin 0.7 mg/dl (0.2-1.3); Total Protein 6.6 g/dl (6.3-8.2); eGFR > 60.00
[2024-06-10 07:37] LABS: Glucose - Point of Care 118 mg/dl (70-99)
[2024-06-10] MEDS: NOVOLOG FLEXPEN-LOW RESISTANCE SC (07:40)
[2024-06-10 08:00] VITALS: BP 115/72
--- NOTE | 2024-06-10 09:08 | W.PN.GS2 ---
Today's Communication / Plan
-
Will DC home today
Assessment / Plan
-
This is a 49-year-old male postoperative day 1 from a laparoscopic cholecystectomy for acute cholecystitis.
Time Spent
Total Time Spent with Patient (in minutes): 20
Subjective Data
-
Date of Service: June 10, 2024
Interval Events:
No acute events overnight. Slept well. Pain Controlled. Denies Nausea/Vomiting, -bowel function. Tolerating diet.
Objective Data
-
Intake and Output
06/09/24 06/10/24 06/11/24
06:59 06:59 06:59
Intake Total 1230 / 1230
Balance 1230 / 1230
Intake:
Oral fluids 980 / 980
IV fluids (Total) 100 / 100
norm 100 / 100
IV piggybacks 150 / 150
Other:
Number of approximated MODERATE 3
amounts of urine
Vital Signs
Temp Pulse Resp BP Pulse Ox
97.9 F 86 19 115/72 95
06/10/24 08:00 06/10/24 08:00 06/10/24 08:00 06/10/24 08:00 06/10/24 08:00
Lab Results
06/10/24 04:34
06/10/24 04:34
Calcium 8.9 mg/dl (8.4-10.2) 06/10/24 04:34
Total Bilirubin 0.7 mg/dl (0.2-1.3) 06/10/24 04:34
AST 71 U/L (17-59) H 06/10/24 04:34
ALT 135 U/L (0-50) H 06/10/24 04:34
Alkaline Phosphatase 88 U/L (38-126) 06/10/24 04:34
Total Protein 6.6 g/dl (6.3-8.2) 06/10/24 04:34
Albumin 3.9 g/dl (3.5-5.0) 06/10/24 04:34
Physical Exam
-
GENERAL/NEURO: Awake, Alert, no distress
CHEST: Unlabored breathing on RA
ABDOMEN: Soft, Non-Tender, Non-Distended, incisions clean dry and intact.
--- NOTE | 2024-06-10 10:15 | CM ---
Reviewed the chart notes and spoke with the patient at the bedside. The patient resides with his mother in a split level home with two steps to enter. The patient reports no DME/VN/SNF in the past. The patient confirmed his pharmacy of choice is
[facility]. The patient's uncle will be provide transportation home. CM continues to be available to patient/family and is monitoring medical plan for needs at discharge.
Plan: Discharge to home today. No needs identified.
== END 2024-06-10 10:16 | disposition home or self-care (01) ==
LOC: PACU 09:29
PROVIDERS: Registered Nurse; ATTENDING PHYSICIAN Surgery; EMERGENCY PHYSICIAN Emergency Medicine; FAMILY PHYSICIAN Nurse Practitioner Family
DX: K80.10 Calculus of gallbladder with chronic cholecystitis without obstruction (principal)
CPT/HCPCS: 47562; 88304; 76700; 80053; 82962; 83690; 84484; 85025; 85027; 93005; 96365; 96375; 96376; 99285; A4300